=== PATIENT | male | born 1985 | race African-American/Black ===

== ENCOUNTER 2018-01-06 23:17 | Emergency (ER) | payer MEDICAID ==
[~2018-01-06] VITALS: Ht 190.5 cm; Wt 145.0 kg
[2018-01-06 23:50] VITALS: BP 150/97
== END 2018-01-07 01:00 | disposition left against medical advice (07) ==
LOC: ER 23:17
DX: Z53.21 Procedure and treatment not carried out due to patient leaving prior to being seen by health care provider (principal)
CPT/HCPCS: 93005